=== PATIENT | female | born 2000 | race Caucasian/White ===

== ENCOUNTER 2019-03-06 12:44 | Emergency (ER) | payer BC, MEDICAID ==
[2019-03-06 12:52] VITALS: BP 156/96
[2019-03-06] MEDS ORDERED: ONDANSETRON 4 MG TAB.RAPDIS PO ONE ×2 (13:17→13:21)
--- NOTE | 2019-03-06 13:22 | ER Document Report ---
ED Medical Screen (RME) - General Chief Complaint: Abdominal Pain Stated Complaint: ABDOMINAL PAIN Time Seen by Provider: 03/06/19 13:14 Primary Care Provider: CHARI ZEPEDA MD [Primary Care Provider] - Follow up as needed TRAVEL OUTSIDE OF THE [place] IN LAST 30 DAYS: No - HPI Notes: 03/06/19 13:19 Patient is a 18-year-old female who presents complaining of left lower quadrant abdominal/pelvic pain that began about 4 days ago. The pain does not radiate. Patient states that she has had associated nausea and vomiting. She is otherwise urinating normally and having normal bowel movements. She has not had any vaginal discharge, odor, or bleeding. Patient reports a medical history of ovarian cysts and 2 of them had to be surgically removed in the past. Patient states that this pain is similar. She has no concern of STD or STI. Denies drug allergies. Patient states that she does not need anything for discomfort at this time, but would like something for nausea. Denies LOWE, fever, neck pain, URI, CP, SOB, back pain, or rash. I have treated and performed a rapid initial assessment of this patient. A comprehensive ED assessment and evaluation of the patient, analysis of test results and completion of medical decision making process will be conducted by additional ED providers. PHYSICAL EXAMINATION: GENERAL: Well-appearing, well-nourished and in no acute distress. A&Ox4. Answers questions appropriately. LUNGS: Breath sounds clear to auscultation bilaterally and equal. No wheezes rales or rhonchi. HEART: Regular rate and rhythm without murmurs, rubs, gallops. ABDOMEN: Soft, nondistended abdomen. No guarding, no rebound. Normal bowel sounds present. No CVA tenderness bilaterally. + mild LLQ/pelvic tenderness (cannot elicit thorough abd exam w/o table, however). Obese. - Related Data Allergies/Adverse Reactions: No Known Allergies Allergy (Verified 03/06/19 12:46) Past Medical History - Past Medical History Cardiac Medical History: Denies: Hx Heart Attack, Hx Hypertension Pulmonary Medical History: Denies: Hx Asthma Neurological Medical History: Denies: Hx Cerebrovascular Accident, Hx Seizures GI Medical History: Denies: Hx Hepatitis, Hx Hiatal Hernia, Hx Ulcer Infectious Medical History: Denies: Hx Hepatitis Past Surgical History: Reports: Hx Tonsillectomy. Denies: Hx Hysterectomy, Hx Mastectomy, Hx Open Heart Surgery, Hx Pacemaker - Immunizations Immunizations up to date: Yes Hx Diphtheria, Pertussis, Tetanus Vaccination: Yes Physical Exam - Vital signs Vitals: Temp Pulse Resp BP Pulse Ox 98.7 F 73 20 156/96 H 97 03/06/19 12:51 03/06/19 12:51 03/06/19 12:51 03/06/19 12:51 03/06/19 12:51 Course - Vital Signs Vital signs: Temp Pulse Resp BP Pulse Ox 98.7 F 73 20 156/96 H 97 03/06/19 12:51 03/06/19 12:51 03/06/19 12:51 03/06/19 12:51 03/06/19 12:51 Doctor's Discharge - Discharge Referrals: CHARI ZEPEDA MD [Primary Care Provider] - Follow up as needed
--- NOTE | 2019-03-06 14:30 | RADIOLOGY REPORT (SQ) ---
EXAM DESCRIPTION: U/S NON OB PEL TV W/DOPPLER COMPLETED DATE/TIME: 03/06/2019 2:19 pm REASON FOR STUDY: LLQ/pelvic pain, h/o cysts COMPARISON: 08/26/2011 TECHNIQUE: Dynamic and static grayscale images acquired of the pelvis via transvaginal approach and recorded on PACS. Additional selected color Doppler and spectral images recorded. LIMITATIONS: None. FINDINGS: UTERUS: Contour normal. No mass. ENDOMETRIAL STRIPE: No focal or generalized thickening. No masses. CERVIX: No nabothian cysts. RIGHT OVARY AND DOPPLER: Normal size. No worrisome masses. Dominant follicle measuring 1.1 cm. Norm al arterial vascular flow without evidence for torsion. LEFT OVARY AND DOPPLER: Normal size. No worrisome masses. Dominant follicle measuring 0.9 cm. Tanisha l arterial vascular flow without evidence for torsion. FREE FLUID: None noted. OTHER: No other significant finding. MEASUREMENTS: UTERUS: 6.0 x 4.3 x 3.4 cm ENDOMETRIAL STRIPE: 2 mm RIGHT OVARY: 2.5 x 1.4 x 1.3 cm LEFT OVARY: 2.6 x 1.1 x 1.6 cm IMPRESSION: No ultrasound findings to explain left lower quadrant pain. There are small follicles p resent in the bilateral ovaries. Consider CT or MRI to further evaluate unexplained pain. TECHNICAL DOCUMENTATION: JOB ID: [id number] 3280[employer]- All Rights Reserved Rev-02/25 Reading location - IP/workstation name: [email or web address]
[2019-03-06 14:31] LABS: ABSOLUTE EOSINOPHILS # (AUTO) 0.2 10^3/uL (0.0-0.6); ABSOLUTE LYMPHOCYTES (AUTO) 2.8 10^3/uL (0.5-4.7); ABSOLUTE MONOCYTES (AUTO) 0.5 10^3/uL (0.1-1.4); ABSOLUTE NEUT (AUTO) 7.1 10^3/uL (1.7-8.2); BASOPHILS % (AUTO) 0.4 % (0-2); EOSINOPHILS % (AUTO) 2.3 % (0-6); HEMATOCRIT 34.8 % (36.0-47.0); HEMOGLOBIN 11.3 g/dL (12.0-15.5); LYMPHOCYTES % (AUTO) 26.6 % (13-45); MEAN CORPUSCULAR HGB CONC 32.5 g/dL (32.0-36.0); MEAN CORPUSCULAR VOLUME 83 fl (80-97); MONOCYTES % (AUTO) 4.3 % (3-13); PLATELET COUNT 329 10^3/uL (150-450); RED BLOOD COUNT 4.19 10^6/uL (3.72-5.28); SEGMENTED NEUTROPHILS % (AUTO) 66.4 % (42-78); TOTAL CELLS COUNTED % (AUTO) 100 %; WHITE BLOOD COUNT 10.6 10^3/uL (4.0-10.5)
[2019-03-06] MEDS ORDERED: FENTANYL CITRATE INJ/PF 100 MCG/2 ML AMPUL IV ONE (14:31)
[2019-03-06 14:42] LABS: APPEARANCE,URINE CLEAR; BILIRUBIN,URINE NEGATIVE (NEGATIVE); COLOR,URINE YELLOW; GLUCOSE, URINE NEGATIVE (NEGATIVE); KETONES,URINE NEGATIVE (NEGATIVE); LEUKOCYTE ESTERASE,URINE NEGATIVE (NEGATIVE); NITRITE,URINE NEGATIVE (NEGATIVE); PROTEIN,URINE NEGATIVE (NEGATIVE); URINE SPECIFIC GRAVITY 1.018; UROBILINOGEN,URINE NEGATIVE mg/dL (<2.0)
[2019-03-06 14:50] LABS: ALANINE AMINOTRANSFERASE 19 U/L (5-35); ALBUMIN 3.9 g/dL (3.7-5.6); ALKALINE PHOSPHATASE 86 U/L (50-135); ANION GAP 12 (5-19); ASPARTATE AMINO TRANSFERASE 12 U/L (5-30); BILIRUBIN,DIRECT 0.2 mg/dL (0.0-0.4); BILIRUBIN,TOTAL 0.2 mg/dL (0.2-1.3); BLOOD UREA NITROGEN 8 mg/dL (7-20); CALCIUM 9.5 mg/dL (8.4-10.2); CARBON DIOXIDE 26 mmol/L (22-30); CHLORIDE 105 mmol/L (98-107); GLUCOSE 94 mg/dL (75-110); LIPASE 32.9 U/L (23-300); POTASSIUM 4.1 mmol/L (3.6-5.0); SODIUM 143.3 mmol/L (137-145)
--- NOTE | 2019-03-06 15:18 | ER Document Report ---
ED General - General Chief Complaint: Abdominal Pain Stated Complaint: ABDOMINAL PAIN Time Seen by Provider: 03/06/19 13:14 Primary Care Provider: CHARI ZEPEDA MD [COMMUNITY BASED STAFF] - Follow up as needed Notes: E Provider note: Patient is a 18-year-old female who presents complaining of left lower quadrant abdominal/pelvic pain that began about 4 days ago. The pain does not radiate. Patient states that she has had associated nausea and vomiting. She is otherwise urinating normally and having normal bowel movements. She has not had any vaginal discharge, odor, or bleeding. Patient reports a medical history of ovarian cysts and 2 of them had to be surgically removed in the past. Patient states that this pain is similar. She has no concern of STD or STI. Denies drug allergies. Patient states that she does not need anything for discomfort at this time, but would like something for nausea. Denies LOWE, fever, neck pain, URI, CP, SOB, back pain, or rash. My HPI: Patient initially refused pain management in triage. Patient is now requesting pain management. Patient states the pain felt very similar to when she had ovarian cyst which is why she presents to the emergency room. Patient's denying any diarrhea or change in her bowel habits. Patient is denying any back pain, left flank pain, radiating pain. TRAVEL OUTSIDE OF THE [place] IN LAST 30 DAYS: No - Related Data Allergies/Adverse Reactions: No Known Allergies Allergy (Verified 03/06/19 12:46) Past Medical History - General Information source: Patient - Social History Smoking Status: Current Some Day Smoker Chew tobacco use (# tins/day): No Frequency of alcohol use: None Drug Abuse: Marijuana Family History: Reviewed & Not Pertinent Patient has suicidal ideation: No Patient has homicidal ideation: No - Past Medical History Cardiac Medical History: Denies: Hx Heart Attack, Hx Hypertension Pulmonary Medical History: Denies: Hx Asthma Neurological Medical History: Denies: Hx Cerebrovascular Accident, Hx Seizures Renal/ Medical History: Denies: Hx Peritoneal Dialysis GI Medical History: Denies: Hx Hepatitis, Hx Hiatal Hernia, Hx Ulcer Infectious Medical History: Denies: Hx Hepatitis Past Surgical History: Reports: Hx Gynecologic Surgery - removal ovarian cyst x 2., Hx Tonsillectomy. Denies: Hx Hysterectomy, Hx Mastectomy, Hx Open Heart Surgery, Hx Pacemaker - Immunizations Immunizations up to date: Yes Hx Diphtheria, Pertussis, Tetanus Vaccination: Yes Review of Systems - Review of Systems Constitutional: denies: Fever EENT: No symptoms reported Cardiovascular: No symptoms reported Respiratory: No symptoms reported Gastrointestinal: See HPI Genitourinary: See HPI Female Genitourinary: See HPI Musculoskeletal: See HPI Skin: No symptoms reported Hematologic/Lymphatic: No symptoms reported Neurological/Psychological: No symptoms reported Physical Exam - Vital signs Vitals: Temp Pulse Resp BP Pulse Ox 98.7 F 73 20 156/96 H 97 03/06/19 12:51 03/06/19 12:51 03/06/19 12:51 03/06/19 12:51 03/06/19 12:51 - Notes Notes: GENERAL: Morbidly obese alert, interacts well. No acute distress. HEAD: Normocephalic, atraumatic. EYES: Pupils equal, round, and reactive to light. Extraocular movements intact. ENT: Oral mucosa moist, tongue midline. NECK: Full range of motion. Supple. Trachea midline. LUNGS: Clear to auscultation bilaterally, no wheezes, rales, or rhonchi. No respiratory distress. HEART: Regular rate and rhythm. No murmur ABDOMEN: Morbidly obese, soft, Non-distended. Bowel sounds present in all 4 quadrants. Generalized left lower abdominal pain, minor left pelvic pain. Patient is lying flat but examination is somewhat limited due to excessive subcutaneous tissue. EXTREMITIES: Moves all 4 extremities spontaneously. No edema, normal radial and dorsalis pedis pulses bilaterally. No cyanosis. BACK: no cervical, thoracic, lumbar midline tenderness. No saddle anesthesia, normal distal neurovascular exam. No CVA tenderness noted bilaterally NEUROLOGICAL: Alert and oriented x3. Normal speech. cranial nerves II through XII grossly intact PSYCH: Normal affect, normal mood. SKIN: Warm, dry, normal turgor. No rashes or lesions noted. Course - Re-evaluation Re-evalutation: 03/06/19 15:18 Patient's labs reveal a very slight leukocytosis. White blood cell count is over 15. She does not meet criteria for CT imaging at this time to rule out diverticulitis. Patient's ultrasound reveals no signs of ovarian torsion or large cyst. Patient states with pain management she overall feels a lot better. Patient has had no further episodes of vomiting in the emergency department. She is able to p.o. fluids with no complications. Patient's urine shows no signs of infection. I discussed 2 possible treatment modalities with the patient. One would be to start her on Augmentin to treat for diverticulitis should that be her underlying infection. Also discussed using a CT imaging for confirmatory imaging. Patient wishes to decline CT at this time. States she will take that at home Augmentin in case she does have diverticulitis and will return to the emergency room for any other concerns. Patient voices that she feels confident now that she knows her transvaginal ultrasound shows no signs of large cyst or ovarian torsion. Patient stable for discharge. This medical record was dictated with voice recognizing software. There may be grammatical, syntax errors that are unintended. 03/06/19 15:23 Transvaginal US 03/06/19 13:17 IMPRESSION: No ultrasound findings to explain left lower quadrant pain. There are small follicles present in the bilateral ovaries. Consider CT or MRI to further evaluate unexplained pain. Laboratory 03/06/19 03/06/19 03/06/19 14:16 14:16 14:16 WBC 10.6 H RBC 4.19 Hgb 11.3 L Hct 34.8 L MCV 83 MCH 27.0 MCHC 32.5 RDW 14.0 Plt Count 329 Seg Neutrophils % 66.4 Lymphocytes % 26.6 Monocytes % 4.3 Eosinophils % 2.3 Basophils % 0.4 Absolute Neutrophils 7.1 Absolute Lymphocytes 2.8 Absolute Monocytes 0.5 Absolute Eosinophils 0.2 Absolute Basophils 0.0 Sodium 143.3 Potassium 4.1 Chloride 105 Carbon Dioxide 26 Anion Gap 12 BUN 8 Creatinine 0.56 Est GFR ( Amer) > 60 Est GFR (Non-Af Amer) > 60 Glucose 94 Calcium 9.5 Total Bilirubin 0.2 Direct Bilirubin 0.2 Neonat Total Bilirubin Not Reportable Neonat Direct Bilirubin Not Reportable Neonat Indirect Bili Not Reportable AST 12 ALT 19 Alkaline Phosphatase 86 Total Protein 7.0 Albumin 3.9 Lipase 32.9 Urine Color YELLOW Urine Appearance CLEAR Urine pH 5.0 Ur Specific [place] 1.018 Urine Protein NEGATIVE Urine Glucose (UA) NEGATIVE Urine Ketones NEGATIVE Urine Blood NEGATIVE Urine Nitrite NEGATIVE Urine Bilirubin NEGATIVE Urine Urobilinogen NEGATIVE Ur Leukocyte Esterase NEGATIVE Urine WBC (Auto) 8 Urine RBC (Auto) 1 Urine Bacteria (Auto) TRACE Squamous Epi Cells Auto 2 Urine Mucus (Auto) FEW Urine Ascorbic Acid NEGATIVE Urine HCG, Qual NEGATIVE - Vital Signs Vital signs: Temp Pulse Resp BP Pulse Ox 98.7 F 73 20 156/96 H 97 03/06/19 14:28 03/06/19 14:28 03/06/19 14:28 03/06/19 14:28 03/06/19 14:28 - Laboratory Result Diagrams: 03/06/19 14:16 03/06/19 14:16 Laboratory results interpreted by me: 03/06/19 14:16 WBC 10.6 H Hgb 11.3 L Hct 34.8 L Discharge - Discharge Clinical Impression: Left lower quadrant pain, Pelvic pain Nausea & vomiting Qualifiers: Vomiting type: unspecified Vomiting Intractability: non-intractable Qualified Code(s): R11.2 - Nausea with vomiting, unspecified Condition: Stable Disposition: HOME, SELF-CARE Instructions: Abdominal Pain ([facility]), Antinausea Medication ([facility]), Diverticulitis ([facility]), Vomiting ([facility]) Additional Instructions: As we discussed you have been seen and treated in the emergency department for your left lower abdominal pelvic pain. Your ultrasound reveals no signs of abnormalities to bilateral ovaries. As we discussed your left lower abdominal pain could be caused by something called diverticulitis. You have opted not to do a CT scan at this time. It is my recommendation that you take medication Augmentin as prescribed in case you do have diverticulitis as this will treat it. Please also take nausea medication as prescribed. Please stay well- hydrated and follow-up with your primary care provider in the next 24 to 48 hours. Return to the emergency room for any other concerns. Prescriptions: Amox Tr/Potassium Clavulanate [Augmentin 875-125 Tablet] 1 tab PO BID 10 Days tablet Ondansetron [Zofran Odt 4 mg Tablet] 2 tab PO Q6 #16 tab.rapdis Forms: Return to Work Referrals: CHARI ZEPEDA MD [COMMUNITY BASED STAFF] - Follow up as needed
== END 2019-03-06 16:30 | disposition home or self-care (01) ==
LOC: ER 12:44
DX: R10.32 Left lower quadrant pain (principal); R10.2 Pelvic and perineal pain; R11.2 Nausea with vomiting, unspecified; F17.200 Nicotine dependence, unspecified, uncomplicated; F12.10 Cannabis abuse, uncomplicated; E66.01 Morbid (severe) obesity due to excess calories; D72.829 Elevated white blood cell count, unspecified; Z87.42 Personal history of other diseases of the female genital tract
CPT/HCPCS: 99284; 96374; 36415; 87086; 83690; 85025; 81025; 87088; 80053; 81001; 76830; 93976; S0119; J3010